=== PATIENT | female | born 1985 | race Caucasian/White ===

== ENCOUNTER 2022-07-18 12:26 | Inpatient (IN) ==
[2022-07-18] MEDS ORDERED: cefTRIAXone 2,000 MG in SODIUM CHLORIDE 0.9% 100 ML IV ONE (13:27)
[2022-07-18] MEDS ORDERED: SODIUM CHLORIDE 0.9% 1,000 ML IV STA (13:27)
[2022-07-18] MEDS ORDERED: VANCOMYCIN INJ 1,000 MG in SODIUM CHLORIDE 0.9% 250 ML IV STA ×2 (13:29→14:09)
[2022-07-18 13:39] LABS: Basophils % 0.2 % (0.0-0.8); Eosinophils # 0.1 10*3/uL (0.0-0.87); Eosinophils % 0.8 % (0.00-10.9); Hematocrit 35.8 VOL% (35.7-47.0); Hemoglobin 11.8 GM/DL (12.0-16.0); Immature Granulocytes % 0.6 %; Immature Granulocytes Absolute 0.06 #; Lymphocytes % 9.2 % (21.3-54.2); Mean Corpuscular Volume 86.5 FL (87-102); Mean Platelet Volume 9.6 FL (9.6-12.0); Monocytes # 0.8 10*3/uL (0.11-0.8); Monocytes % 7.8 % (1.7-12.7); Neutrophils % 81.4 % (38.7-73.9); Platelet Count 496 T/CUMM (130-400); Red Blood Count 4.14 MC/CUMM (3.8-5.5); Red Cell Distribution Width 12.2 % (9.3-17.3); White Blood Count 10.8 T/CUMM (4-12)
[2022-07-18 13:58] LABS: Bilirubin,Urine Negative (Negative); Blood, Urine Small mg/dL (Negative); Glucose,Urine (UA) Negative (Negative); Ketones,Urine Negative (Negative); Nitrite,Urine Negative (Negative); Protein,Urine Negative (Negative); RBC,Urine 6 /HPF (0-4); Squamous Epithelial Cell,Urine Few /HPF (0-10); Urine Appearance Slightly Hazy (Clear); Urine Color Yellow (Yellow); Urine Specific Gravity 1.003 (1.001-1.035); Urine Urobilinogen < 2.0 eU/dL (<2.0)
[2022-07-18 13:58] LABS: Calcium 9.2 MG/DL (8.5-10.1); Osmolality,Calculated 264.2 MOS/KG (273-304); Potassium 3.4 MMOL/L (3.5-5.1)
[2022-07-18] MEDS ORDERED: ONDANSETRON 4 MG/2 ML VIAL IV STA (14:21)
[2022-07-18] MEDS ORDERED: HYDROmorphone 1 MG/1 ML SYRINGE IV STA (14:21)
[2022-07-18] MEDS ORDERED: ACETAMINOPHEN 325 MG TABLET PO PRN (14:52)
[2022-07-18] MEDS ORDERED: ONDANSETRON 4 MG/2 ML VIAL IV PRN (14:52)
[2022-07-18] MEDS ORDERED: ALBUTEROL/IPRATROPIUM 3 ML NEB RESP TX PRN (15:24)
[2022-07-18] MEDS: SODIUM CHLORIDE 0.9% 1,000 ML IV SCH (15:29)
[2022-07-18 16:03] LABS: Barbiturates Screen,Urine Negative (Negative); Benzodiazepines Screen,Urine Negative (Negative); Cannabinoid Screen,Urine Positive (Negative); Opiate Screen,Urine Positive (Negative); Phencyclidine Screen,Urine Negative (Negative)
[2022-07-18] MEDS: HYDROmorphone 1 MG/1 ML SYRINGE IV PRN (18:32)
[2022-07-18] MEDS ORDERED: ENOXAPARIN 40 MG/0.4 ML SYRINGE SUBCUT SCH (21:00)
[2022-07-19] MEDS: SODIUM CHLORIDE 0.9% 1,000 ML IV SCH ×2 (01:48→11:40)
[2022-07-19] MEDS: HYDROmorphone 1 MG/1 ML SYRINGE IV PRN ×3 (02:57→23:52)
[2022-07-19 06:27] LABS: Basophils % 0.4 % (0.0-0.8); Eosinophils # 0.1 10*3/uL (0.0-0.87); Hemoglobin 9.6 GM/DL (12.0-16.0); Immature Granulocytes % 0.5 %; Immature Granulocytes Absolute 0.04 #; Lymphocytes % 13.3 % (21.3-54.2); Mean Corpuscular HGB Conc 33.1 GM/DL (32-36); Mean Corpuscular Volume 87.3 FL (87-102); Mean Platelet Volume 9.4 FL (9.6-12.0); Monocytes # 0.7 10*3/uL (0.11-0.8); Monocytes % 8.6 % (1.7-12.7); Neutrophils % 76.2 % (38.7-73.9); Platelet Count 449 T/CUMM (130-400); Red Blood Count 3.32 MC/CUMM (3.8-5.5); Red Cell Distribution Width 12.3 % (9.3-17.3); White Blood Count 7.8 T/CUMM (4-12)
[2022-07-19 06:43] LABS: Albumin 2.1 G/DL (3.4-5.0); Bilirubin,Total 0.6 MG/DL (0.20-1.00); Calcium 8.7 MG/DL (8.5-10.1); Osmolality,Calculated 277.3 MOS/KG (273-304); Potassium 3.8 MMOL/L (3.5-5.1); Total Protein 7.1 G/DL (6.4-8.2)
[2022-07-19] MEDS: PANTOPRAZOLE 40 MG TABLET PO SCH (08:54)
[2022-07-19] MEDS: cefTRIAXone 1,000 MG in SODIUM CHLORIDE 0.9% 100 ML IV SCH (08:54)
[2022-07-19] MEDS ORDERED: cefTRIAXone 1,000 MG in SODIUM CHLORIDE 0.9% 100 ML IV ONE (12:52)
[2022-07-20] MEDS: HYDROmorphone 1 MG/1 ML SYRINGE IV PRN ×2 (02:59→07:23)
[2022-07-20] MEDS: SODIUM CHLORIDE 0.9% 1,000 ML IV SCH ×3 (04:49→12:50)
[2022-07-20 05:11] LABS: Basophils % 0.2 % (0.0-0.8); Eosinophils # 0.1 10*3/uL (0.0-0.87); Eosinophils % 0.7 % (0.00-10.9); Hematocrit 27.8 VOL% (35.7-47.0); Hemoglobin 9.2 GM/DL (12.0-16.0); Immature Granulocytes % 0.7 %; Immature Granulocytes Absolute 0.07 #; Lymphocytes # 1.2 10*3/uL (1.4-4.0); Lymphocytes % 12.5 % (21.3-54.2); Mean Corpuscular HGB Conc 33.1 GM/DL (32-36); Mean Corpuscular Volume 85.5 FL (87-102); Mean Platelet Volume 9.2 FL (9.6-12.0); Monocytes # 0.7 10*3/uL (0.11-0.8); Monocytes % 6.7 % (1.7-12.7); Neutrophils % 79.2 % (38.7-73.9); Platelet Count 499 T/CUMM (130-400); Red Blood Count 3.25 MC/CUMM (3.8-5.5); Red Cell Distribution Width 12.2 % (9.3-17.3); White Blood Count 9.8 T/CUMM (4-12)
[2022-07-20 05:42] LABS: Alanine Aminotransferase 15 U/L (13-56); Alkaline Phosphatase 267 U/L (45-117); Aspartate Amino Transferase 25 U/L (0-37); Bilirubin,Total < 0.39 MG/DL (0.20-1.00); Blood Urea Nitrogen 8 MG/DL (7-18); Calcium 8.5 MG/DL (8.5-10.1); Carbon Dioxide 27 MMOL/L (21-32); Chloride 104 MMOL/L (98-107); Glucose 106 MG/DL (74-106); Osmolality,Calculated 272.7 MOS/KG (273-304); Potassium 3.6 MMOL/L (3.5-5.1); Sodium 138 MMOL/L (136-145); Total Protein 6.7 G/DL (6.4-8.2)
[2022-07-20] MEDS ORDERED: cefTRIAXone 1,000 MG in SODIUM CHLORIDE 0.9% 100 ML IV ONE (06:00)
[2022-07-20] MEDS: PANTOPRAZOLE 40 MG TABLET PO SCH (08:34)
[2022-07-20] MEDS: cefTRIAXone 1,000 MG in SODIUM CHLORIDE 0.9% 100 ML IV SCH (08:35)
[2022-07-20] MEDS ORDERED: SEVOFLURANE 1 UNIT/15 MINUTE INH ONE (10:32)
[2022-07-20] MEDS ORDERED: ONDANSETRON 4 MG/2 ML VIAL ONE (10:32)
[2022-07-20] MEDS ORDERED: propofoL 200 MG/20 ML VIAL IV ONE (10:32)
[2022-07-20] MEDS ORDERED: fentaNYL 100 MCG/2 ML VIAL ONE (10:32)
[2022-07-20] MEDS ORDERED: LIDOCAINE 2% 5 ML VIAL ONE (10:32)
[2022-07-20] MEDS ORDERED: MIDAZOLAM 2 MG/2 ML VIAL ONE (10:32)
[2022-07-20 12:00] LABS: Bacteria,Urine Occasional /HPF (Few); Bilirubin,Urine Negative (Negative); Blood, Urine Moderate mg/dL (Negative); Glucose,Urine (UA) Negative (Negative); Ketones,Urine Negative (Negative); Nitrite,Urine Negative (Negative); Protein,Urine Negative (Negative); RBC,Urine 26 /HPF (0-4); Squamous Epithelial Cell,Urine Occasional /HPF (0-10); Urine Appearance CLOUDY (Clear); Urine Color Yellow (Yellow); Urine Specific Gravity 1.004 (1.001-1.035); Urine Urobilinogen < 2.0 eU/dL (<2.0)
[2022-07-20 12:29] VITALS: BP 105/72
== END 2022-07-20 16:00 | disposition home or self-care (01) | DRG 463 ==
LOC: N.ED 12:26 → N.EDINP 14:52 → N.3E 17:41
PROVIDERS: ADMIT Family Medicine; ATTEND Family Medicine